=== PATIENT | male | born 1945 | race Caucasian/White ===

== ENCOUNTER → 2018-12-16 | Outpatient (CLI) | payer MEDICARE ==
[~2018-12-16] MED LIST: ACET325T14 PO; ASPI325T80 PO; CHOL100012 PO; CYAN2500 PO; DICL75TA3 PO; FOLIC ACID PO; GLUC1TAB55 PO; HYDR1TAB14 PO; LISI1TAB5 PO; LISI2.5T PO; PREG25CA PO; PREG75CA PO; SAW1CAPS2 PO; TEST5POW3 PO
== END | disposition home or self-care (01) ==
LOC: CFH 10:51
PROVIDERS: ATTEND Internal Medicine
DX: Z12.11 Encounter for screening for malignant neoplasm of colon (principal); Z12.5 Encounter for screening for malignant neoplasm of prostate; Z13.220 Encounter for screening for lipoid disorders; I12.9 Hypertensive chronic kidney disease with stage 1 through stage 4 chronic kidney disease, or unspecified chronic kidney disease; N18.3 Chronic kidney disease, stage 3 (moderate); E29.1 Testicular hypofunction; F10.10 Alcohol abuse, uncomplicated; N41.0 Acute prostatitis; E55.9 Vitamin D deficiency, unspecified; R97.20 Elevated prostate specific antigen [PSA]; R53.83 Other fatigue; Z86.19 Personal history of other infectious and parasitic diseases
CPT/HCPCS: 36415; 85379

== ENCOUNTER → 2019-01-12 | Outpatient (CLI) | payer MEDICARE | END | disposition home or self-care (01) | LOC: CFH 10:40 | PROVIDERS: ATTEND Internal Medicine | DX: J84.10 Pulmonary fibrosis, unspecified (principal) | CPT/HCPCS: 71250; 78452; 93017; A9502 ==

== ENCOUNTER 2019-01-13 15:47 | Outpatient (CLI) | payer MEDICARE | END 2019-01-13 23:59 | disposition home or self-care (01) | LOC: CFH 15:47 | PROVIDERS: ATTEND Internal Medicine | DX: R07.9 Chest pain, unspecified (principal); I12.9 Hypertensive chronic kidney disease with stage 1 through stage 4 chronic kidney disease, or unspecified chronic kidney disease; N18.3 Chronic kidney disease, stage 3 (moderate); E55.9 Vitamin D deficiency, unspecified; F10.10 Alcohol abuse, uncomplicated; Z86.19 Personal history of other infectious and parasitic diseases; Z72.0 Tobacco use | CPT/HCPCS: 93306 ==

== ENCOUNTER 2019-08-06 10:20 | Day surgery (SDC) | payer MEDICARE ==
[~2019-08-06] VITALS: Ht 176.5 cm; Wt 77.3 kg
[~2019-08-06 10:20] MED LIST changes: -HYDR1TAB14 PO; +HYDR1TAB15 PO; +LISI1TAB19 PO; -LISI1TAB5 PO; -SAW1CAPS2 PO; +SAW1CAPS6 PO
[2019-08-06] MEDS ORDERED: LIDOCAINE 2%, 20ML ONE (11:38)
[2019-08-06 12:10] VITALS: BP 141/99
[2019-08-06] MEDS ORDERED: LIDOCAINE 1%-EPI 1:100K, 20ML SQ PRN (12:30)
[2019-08-06] MEDS ORDERED: PLEASE ENTER HEIGHT AND WEIGHT MC SCH (12:30)
== END 2019-08-06 12:40 | disposition home or self-care (01) ==
LOC: CACL 10:20
PROVIDERS: ATTEND Internal Medicine Cardiovascular Disease
DX: R55 Syncope and collapse (principal); R42 Dizziness and giddiness; I10 Essential (primary) hypertension; F17.290 Nicotine dependence, other tobacco product, uncomplicated; Z79.82 Long term (current) use of aspirin; Z79.899 Other long term (current) drug therapy; Z88.0 Allergy status to penicillin; Z82.49 Family history of ischemic heart disease and other diseases of the circulatory system
CPT/HCPCS: 33285; C1764